=== PATIENT | female | born 1975 | race Caucasian/White ===

== ENCOUNTER → 2021-12-25 14:21 | Outpatient (BNVA) | payer MEDICAID, SELFPAY | PROVIDERS: PCP Nurse Practitioner Adult Health; Visit Provider Internal Medicine | DX: M53.3 Sacrococcygeal disorders, not elsewhere classified (principal); G89.29 Other chronic pain | CPT/HCPCS: 99202 ==

== ENCOUNTER 2024-12-28 09:26 | Outpatient (AMB) | payer MEDICAID, SELFPAY ==
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
[2024-12-28 09:35] VITALS: BP 125/59; PULSE 71; RESP 16; O2SAT 100; BMI 31.5
== END 2024-12-28 10:04 | disposition home or self-care (01) ==
PROVIDERS: PCP Nurse Practitioner Adult Health; Visit Provider Internal Medicine
DX: M53.3 Sacrococcygeal disorders, not elsewhere classified (principal); G89.29 Other chronic pain
CPT/HCPCS: 99213

== ENCOUNTER → 2024-12-28 09:26 | Outpatient (BNVA) | payer MEDICAID, OTHER, SELFPAY | PROVIDERS: PCP Nurse Practitioner Adult Health; Visit Provider Internal Medicine | DX: M53.3 Sacrococcygeal disorders, not elsewhere classified (principal); G89.29 Other chronic pain | CPT/HCPCS: 99212 ==

== ENCOUNTER 2025-02-05 10:36 | Outpatient (AMB) | payer MEDICAID, SELFPAY ==
--- NOTE | 2025-02-05 10:38 | A.OFFVIS_ITS ---
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 The patient reports experiencing sciatica characterized by pins and needles sensation in the buttocks and numbness extending to the toes and calves. The symptoms are exacerbated by prolonged standing and certain movements such as bending to apple picker objects. The patient has a history of sacroiliac joint dysfunction, with previous discussions about potential interventions including injections and fusion. The patient has not found relief from physical therapy or the use of a supportive belt. The patient also reports bilateral hip pain, which has been evaluated with plans for further imaging to rule out hip joint arthritis. The patient has a history of sports-related activities and a fall during , which may have contributed to her current symptoms. Pain Description - Onset: Long-standing, exacerbated by prolonged standing and certain movements - Quality: Pins and needles sensation in buttocks, numbness in toes and calves - Location: Buttocks, extending to toes and calves - Exacerbating factors: Prolonged standing, bending to apple picker objects - Relieving factors: None mentioned Physical Exam - Musculoskeletal: Positive Hilary test, positive sacroiliac joint compression and thrust tests Results - MRI: No significant degenerative disc disease or vertebral endplate changes, no significant facet hypertrophy Pain Management - Affect: Pain impacts daily activities and mood - Analgesia: Current pain management strategies not effective - Adverse Effects: None reported - Activities of Daily Living: Pain interferes with standing and certain movements - Aberrant Drug Related Behaviors: None reported Physical Exam Vital Signs: Last Vital Signs Pulse 88 02/05/25 10:39 Resp 16 02/05/25 10:39 BP 100/68 02/05/25 10:39 Pulse Ox 98 02/05/25 10:39 Oxygen Delivery Method Room Air 02/05/25 10:39 BMI result Body Mass Index 31.2 Assessment & Plan Assessment & Plan (1) Chronic hip pain: Code(s): M25.559 - Pain in unspecified hip; G89.29 - Other chronic pain Category: Medical (2) Chronic right sacroiliac joint pain: Code(s): M53.3 - Sacrococcygeal disorders, not elsewhere classified; G89.29 - Other chronic pain Category: Medical Plan Plan Patient was informed and verbally consented to the use of an ambient scribe for clinic note documentation during this visit. 1. Sacroiliac Joint Dysfunction - Diagnostic sacroiliac joint injection planned to assess pain relief and confirm diagnosis. - Plan to conduct a thorough workup of the sacroiliac joint, including diagnostic and therapeutic injections. - Consideration of minimally invasive sacroiliac joint fusion if injections conf irm diagnosis. 2. Bilateral Hip Pain - X-ray of bilateral hips and pelvis ordered to rule out hip joint arthritis. Discussion Notes I discussed with the patient the benign nature of the MRI findings and the absence of lumbar spine pathology to explain her axial low back pain. We reviewed the plan to perform diagnostic and therapeutic injections for the sacroiliac joint to assess pain relief. If the injections confirm sacroiliac joint dysfunction, we may consider a minimally invasive fusion. We also discussed obtaining x-rays of the hips to rule out arthritis as a source of pain. The patient was informed about the steps involved and the potential outcomes of each intervention. Patient Instructions - Schedule and attend the diagnostic sacroiliac joint injection. - Obtain x-rays of the hips and pelvis as ordered. - Follow up after the procedures to discuss results and next steps. Orders: Orders XR hip BI w PEL1V 02/05/25 G89.29 - Other chronic pain, M25.559 - Pain in unspecified hip Coding Level of Care Code Est Pt Level 4 (75877) Diagnoses Chronic hip pain M25.559; G89.29 Chronic right sacroiliac joint pain M53.3; G89.29
[2025-02-05 10:39] VITALS: BP 100/68; PULSE 88; RESP 16; O2SAT 98; BMI 31.2
--- OUTSIDE RECORDS SUMMARY | 2025-02-05 11:15 | XMS_ITS | Encounter Summary ---
Author Organization [facility] Address [address] [place] [address] Phone Care Team Providers Care Cane Burner Name Role Phone Ravindra Dockery MD Unavailable [phone] Linden Clifford MD Unavailable Ana Peace MD Unavailable [phone] Fitz Espitia MD Unavailable [phone] Zana Dias WARDROBE IMAGE CONSULTANT Unavailable [phone] Brian Nielson MD Unavailable Rommel Mcnamara CNP Unavailable Rommel Mcnamara CNP Primary Care Provider Santi Martines MD Unavailable [phone] Ravindra Dockery MD Unavailable [phone] Encounter Details Date Type Department Care Team (Late st Contact Info) Description 07/04/2018 Procedure Pass [address] [address] Social History Tobacco Use Types Packs/Day Years Used Date Smoking Tobacco: Former Cigarettes 1 20 1 - 02/2015 Smokeless Tobacco: Never Comments Unknown Sex and Gender Information Value Date Recorded Sex Assigned at Not on file Legal Sex Female 9:27 PM EDT Gender Identity Not on file Sexual Orientation Not on file documented as of this encounter Plan of Treatment Upcoming Encounters Date Type Department Care Team (Late Contact Info) Description 02/11/2025 9:00 AM EDT Procedure visit [facility] [address] [place] [address] Cody Cummings MD [address], [address] [place] [address] [email or web address] 04/30/2025 8:30 AM EST Office Visit [facility] [address] [place] [address] Rommel Mcnamara CNP [address] [place] [address] [email or web address] documented as of this encounter Visit Diagnoses Not on filedocumented in this encounter Additional Health Concerns Infection Onset Date Last Indicated Resolved Time CoV-Risk 05/07/2023 05/07/2023 05/18/2023 1:22 AM EST documented as of this encounter Care Teams Cane Burner Relationship Specialty Start Date End Date Rommel Mcnamara CNP [address] [place] [address] PCP - General 05/24/17 Ravindra Dockery MD [address] [place] [address], [address] [place] [address] Historical LMR Provider 03/05/17 9 Linden Clifford MD [address] [place] [address] Historical LMR Provider 03/05/1703/20 Ana Peace MD [address], 2nd [place] [address] Historical LMR Provider 03/05/1703/20 Fitz Espitia MD [address], [address] [place] [address] Historical LMR Provider 03/05/17 Zana Dais WARDROBE IMAGE CONSULTANT [address], [address] [place] [address] Historical LMR Provider 03/05/17 0 Brian Nielson MD [address] [place] [address] [email or web address] Historical LMR Provider 03/05/17 03/22/19 Rommel Mcnamara CNP [address] [place] [address] [email or web address] Historical LMR Provider 03/05/17 Santi Mratines MD [address] [place] [address] [email or web address] Insurance Assigned Provider 04/20/18 Ravindra Dockery MD [address] [place] [address] Insurance Assigned Provider 09/20/1801/26/23 documented as of this encounter Additional Source Comments The information contained in this document represents components of the legal health record. It is not the complete legal health record.[facility]
--- OUTSIDE RECORDS SUMMARY | 2025-02-05 11:15 | XMS_ITS | Encounter Summary ---
Author Organization [facility] Address [address] [place] [phone] Phone Care Team Providers Care Motor Rebuilder Name Role Phone Ravindra Dockery MD Unavailable [phone] Linden Clifford MD Unavailable Ana Peace MD Unavailable [phone] Fitz Espitia MD Unavailable [phone] Zana Dias STERILIZATION TECH Unavailable [phone] Brian Nielson MD Unavailable Rommel Mcnamara CNP Unavailable Rommel Mcnamara CNP Primary Care Provider Santi Martines MD Unavailable [phone] Ravindra Dockery MD Unavailable [phone] Encounter Details Date Type Department Care Team (Late st Contact Info) Description 09/02/2018 Procedure Pass [facility] [address] [place] [address] Social History Tobacco Use Types Packs/Day Years [...] 02/11/2025 9:00 AM EDT Procedure visit [facility] [address] [place] [address] Cdoy Cummings MD [address] [facility] [place] [address] [email or web address] 04/30/2025 8:30 AM EST Office Visit [facility] [address] [place] [address] Rommel Mcnamara CNP [address] [facility] [address] [place] [address] [email or web address] documented as of this encounter Visit Diagnoses Not on filedocumented in this encounter Additional Health Concerns Infection Onset Date Last Indicated Resolved Time CoV-Risk 05/07/2023 05/07/2023 05/18/2023 1:22 AM EST documented as of this encounter Care Teams Motor Rebuilder Relationship Specialty Start Date End Date Rommel Mcnamara CNP [address] [facility] [place] [address] PCP - General 05/24/17 Ravindra Dockery MD [address] [place] [address], [address] [place] [address] Historical LMR Provider 03/05/17 9 Linden Clifford MD [address] [place] [address] Historical LMR Provider 03/05/1703/20 Ana Peace MD [address] [facility] 2nd [place] [address] Historical LMR Provider 03/05/1703/20 Fitz Espitia MD [address] [facility] [place] [address] Historical LMR Provider 03/05/17 Zana Dias STERILIZATION TECH [address] [facility], [address]nd [place] [address] Historical LMR Provider 03/05/17 0 Brian Nielson MD [address] [facility] [address] [place] [address] [email or web address] Historical LMR Provider 03/05/17 03/22/19 Rommel Mcnamara CNP [address] [facility] [place] [address] [email or web address] Historical LMR Provider 03/05/17 Santi Martines MD [address] [facility] [place] [address] [email or web address] Insurance Assigned Provider 04/20/18 Ravindra Dockery MD [address] [facility] [place] [address] Insurance Assigned Provider 09/20/1801/26/23 documented as of this encounter Additional Source Comments The information contained in this document represents components of the legal health record. It is not the complete legal health record.[facility]
--- OUTSIDE RECORDS SUMMARY | 2025-02-05 11:15 | XMS_ITS | Clinical Summary ---
Author Organization [facility] Address [address] [facility] [facility] [address] [place] [id number] Phone Care Team Providers Care Chemical Inspector Name Role Phone Fitz Espitia MD Unavailable [phone] Rommel Mcnamara CNP Unavailable Rommel Mcnamara CNP Primary Care Provider [phone] Allergies Active Allergy Reactions Criticality Noted Date Comments Duloxetine 06/25/2018 Crawl out skin Pregabalin 06/25/2018 Quiroz Paroxetine Hcl 06/25/2018 Crawl out of skin Medications ibuprofen (ADVIL,MOTRIN) 800 MG tablet Take 1 tablet (800 mg total) by mouth every 6 (six) hours as needed for pain (specific location in comments). 84 tablet 2 Active tiZANidine (ZANAFLEX) 2 MG tablet Take 1 tablet (2 mg total) by mouth nightly at bedtime as needed. Do not use with marijuana 12 tablet 3 Active citalopram (CELEXA) 20 MG tablet Take 1 tablet (20 mg total) by mouth daily. 90 tablet 3 5 Active oxyCODONE 5 MG immediate release tabletIndicatio ns:Chronic left-sided low back pain with left-sided sciatica Take 1 tablet (5 mg total) by mouth 2 (two) times a day. 56 tablet 5 Active oxyCODONE 5 MG immediate release tabletIndicatio ns:Chronic left-sided low back pain with left-sided sciatica Take 1 tablet (5 mg total) by mouth 2 (two) times a day. 56 tablet 5 02/02/20 25 Discontinu ed(Reorder ) doxycycline monohydrate (MONODOX) 100 MG capsule Take 1 capsule (100 mg total) by mouth 2 (two) times a day for 7 days. 14 capsule 5 01/13/20 25 Active Problems Problem Noted Date Diagnosed Date Abnormal MRI, lumbar spine 04/27/2024 Assessment & Plan (04/27/2024 9:25 AM EST): Perimenopausal symptoms 03/12/2023 Assessment & Plan (06/12/2024 8:50 AM EST): Hot flashes improved with SSRI. Orders: Ambulatory referral to [facility] Assessment & Plan (04/27/2024 9:25 AM EST): She has had some improvement in irritability and hot flashes with citalopram 10 mg daily but would like to try a dose adjustment to 20 mg daily. New prescription is sent. F/up via TM in 1-2 months. Assessment & Plan (09/18/2023 8:41 AM EDT): Well managed with citalopram 10 mg daily. Continue the same. Assessment & Plan (04/23/2023 8:03 AM EST): Symptoms have been better controlled and she reports less irritability and anxiety on citalopram which she is tolerating without side effects. Offered dose adjustment to 20 mg daily but she prefers to continue the 10 mg dose. I offered my condolences on her loss. She reports good support and feels that the citalopram has also helped with coping. Refill provided. Follow up in September as scheduled. Assessment & Plan (03/12/2023 9:06 AM EDT): She will continue to track her periods. Trial citalopram 10 mg daily for irritability and vasomotor symptoms. Follow up via telehealth call in 6 weeks, sooner as needed. Common s/e reviewed. Encouraged more regular walking for stress management. I recommended that she reduce caffeine intake. Encounter for general adult medical examination with abnormal findings 03/12/2023 Assessment & Plan (04/27/2024 9:25 AM EST): Flu shot today. Eligible for Covid vaccine at the pharmacy. Warning signs of breast cancer and breast self-awareness reviewed. Mammography ordered. Pap smear 2025 per ASCCP guidelines. Referred, again, to [facility] for baseline colonoscopy. She plans to update dental and eye care. Orders: CBC; Future Basic metabolic panel; Future Assessment & Plan (03/12/2023 9:02 AM EDT): Flu and Td today. We reviewed that she is eligible for Covid vaccine. Warning signs of breast cancer and breast self-awareness reviewed. She will schedule mammography. Next screening pap smear 2025 per ASCCP guidelines. We will clarify what colon cancer screening insurance will cover; she is amenable to any option including colonoscopy. Labs today as below. She plans to update eye exam. Disorder of sacrum 09/07/2021 Chronic low back pain 06/24/2017 Assessment & Plan (01/04/2025 3:57 PM EDT): She consulted with [facility] pain management. Await documentation. We'll also try to find out from [facility] what the wait time is for screening colonoscopy as she consulted in May. Assessment & Plan (10/14/2024 3:00 PM EDT): Chronic low back pain with sacroiliitis and bilateral sciatica is more severe on the left, limiting daily activities. Current management includes oxycodone. She is ready for surgical evaluation. Update referral to Dr. Herzog at [facility] for surgical evaluation as this previously . We updated her opioid contract today and obtained UDS. Continue oxycodone as prescribed. Orders: Ambulatory referral to External Neurosurgery Toxicology screen, urine; Future Assessment & Plan (04/27/2024 9:25 AM EST): Chronic bilateral low back pain and now with abnormal findings on MRI. There was conversation about SI joint fusion previously. She has an open referral to Dr. Pennings but has not been contacted for an appointment and had not received the report from the recent MRI. We will fax that report and give her the number to schedule her consult. For now, continue oxycodone 5 mg BID. She is up to date with UDS and does not have an aberrant behavior. She is on contract here. We reviewed that she will need to stop smoking marijuana before any surgical procedures and the importance of this for wound healing. She is frustrated but agrees to continue to work on reducing. Continue to abstain from nicotine. Assessment & Plan (09/18/2023 8:42 AM EDT): Worsening with new right sided SI joint and hip discomfort over the past month in the setting of chronic L SI joint pain with L-sided sciatica. Pati and I discussed the effect of her block in the past and discussed that pain is unlikely to improve without intervention. She remains on chronic opioids and the goal is to be able to wean her off these. She is amenable to consulting again with Dr. Espitia to start and referral is placed. Update UDS today. Last dose of oxycodone at 5 AM today. Assessment & Plan (03/12/2023 9:05 AM EDT): Referred back to [facility] pain management to discuss treatment options. She is aware of the need to be off inhaled THC for 6 weeks prior to procedures and I encouraged her to start experimenting with reducing her intake and switching to edibles. CSRP updated. UDS obtained today. Follow up q6 months, sooner as needed. Continue oxycodone 5 mg twice daily. Former smoker 06/24/2017 Marijuana user 06/24/2017 Assessment & Plan (06/12/2024 8:50 AM EST): Assessment & Plan (04/27/2024 9:25 AM EST): Menstrual migraine without s tatus migrainosus, not intractable 06/24/2017 Assessment & Plan (06/12/2024 8:50 AM EST): She has stable migraine pattern. She notes what sound like tension type headaches. Based on her description I do not think that she needs vascular imaging urgently. I asked her to continue to reduce inhaled marijuana, to increase water intake, ensure good sleep, and put effort into stress management. To ER with worst headache of her life. Schedule o/v if headache patterns change so we can consider neurology referral or imaging. She agrees. Abiolajose 06/24/2017 Other chronic pain 06/24/2017 Assessment & Plan (06/12/2024 10:20 AM EST): Oxycodone refilled today. She is on contract. I reminded her to call Dr. Herzog' office. She agrees. Sacroiliitis, not elsewhere classified 8 Assessment & Plan (10/14/2024 3:00 PM EDT): Orders: Ambulatory referral to External Neurosurgery Toxicology screen, urine; Future Encounter for therapeutic drug monitoring 2017 Assessment & Plan (10/14/2024 3:00 PM EDT): Orders: Ambulatory referral to External Neurosurgery Toxicology screen, urine; Future Resolved Problems Problem Noted Date Diagnosed Date Resolved Date Acute cough 05/07/2023 04/27/2024 Assessment & Plan (05/07/2023 9:29 AM EST): Rapid flu is negative. Covid swab is sent as she has not tested at home and has new onset cough and felt warm last night. O2 saturation is normal and lung sounds are clear. Recommend that she push fluids, use tea with lemon/honey for cough, limit dairy, and rest. Masking encouraged until test results are available. Suspect viral etiology. No focal symptoms to suggest bacterial infection. She did feel worse last night and if Covid swab is negative and she continues to be feverish I would consider treatment for ABRS given mild sinus tenderness on exam. Dysuria 10/29/2022 03/12/2023 Assessment & Plan (10/29/2022 3:51 PM EDT): Urine dip with 1+ blood and leukocytes. Specific gravity >/= 1.030. Increase water intake. Urine sent to the lab for further analysis. Call with increasing pain, fever or chills otherwise f/up based on results. Void post coitus. Routine screening for STI (s exually transmitted infection) 10/29/2022 03/12/2023 Assessment & Plan (10/29/2022 3:52 PM EDT): STI testing today. She understands that it can take up to 3 months for hepatitis and HIV testing to become positive. Call with flu-like illness. Consider repeating in a few months. Encouraged condom use and STI testing for her partner. She is in agreement. Elevated hemoglobin 06/24/2017 01/19/20 21 Encounters Date Type Department Care Team Description 02/01/[address] [place] [address] Betsy Magallanes LPN Medication Refill (CSRP) 01/22/2025 8:20 AM EDT Office Visit [facility] [address] [place] [address] [place] [address] Cody Cummings MD Perimenopausal symptoms (Primary Dx); High risk HPV infection 01/19/[address] [place] [address] Rommel Mcnamara CNP Labs 01/05/2025 10:29 AM EDT - 01/05/2025 11:59 PM EDT Hospital Encounter [facility] [address] [place] [address] [place] [address] Rommel Mcnamara CNP Discharge Disposition: Home or Self Care 01/05/[address] [place] [address] Opal Graham, RN Results 01/04/2025 3:30 PM EDT Office Visit [address] [place] [address] Rommel Mcnamara CNP PCB (post coital bleeding) (Primary Dx); Chronic left-sided low back pain with left-sided sciatica 01/04/[address] [place] [address] Rommel Mcnamara CNP Colonoscopy 01/04/[address] [place] [address] Betsy Magallanes LPN Medication Refill (CSRP oxycodone) 12/30/2024 Nurse Triage [address] [place] [address] Rommel Mcnamara CNP Triage (Yellow+vaginal bleeding) 12/25/[address] [place] [address] Betsy Magallanes LPN Referral Request ([facility]) 12/08/[address] [place] [address] Betsy Magallanes LPN Medication Refill (CSRP oxycodone) 11/23/[address] [place] [address] Roseanne Hedrick MA Medication Refill 11/21/2024 Refill [facility] [address] [place] [address] Subha Buchanan PA-C Medication Refill (After-hours on-call) 11/13/[address] [place] [address] Rommel Mcnamara CNP Medication Refill (Oxycodone 5 mg) 11/13/[address] [place] [address] Yakov Orellana MA Medication Refill (Pt LVM for med refill) from Last 3 Months Immunizations Immunization Administration Dates Next Due COVID-19 (Pre-03/11) Pfizer Vaccine, mRNA, PF 07/23/2020,07/02/2020 INFLUENZA, SPLIT VIRUS, TRIVALENT PF 04/27/2024 Influenza Quadrivalent Prese rvative Free IM 03/12/2023,07/10/2022,05/15/2021,04/06,03/08/2017 Influenza Quadrivalent w/ Pr eservative IM 03/09/2015,03/10/2014 Influenza Recombinant Tami valent Preservative Free IM 03/23/2019,05/05/2018 Influenza trivalent preserva tive free intradermal 02/10/2013 Pneumococcal polysaccharide PPSV23 01/24/2010 Td (adult),2 Lf Tetanus Toxo id, PF, Adsorbed 03/12/2023 Tdap 10/15/2012 Family History Medical History Relation Comments Other Brother 1 Recovering addic t. Smoker Kidney failure Brother 2 No Known Problems Daughter COPD Father Former smoker Lung cancer Maternal Grandfather Anxiety disorder Mother COPD Mother Former smoker Hypertension Mother Stroke Paternal Grandmother Drug abuse Sister Step-sister: d of infection Stroke Son 1 Dissection and c lot Other Son 2 Not biological c hild - step son Breast cancer Neg Hx Colon cancer Neg Hx Diabetes Neg Hx Prostate cancer Neg Hx Relation Status Comments Brother 1 Alive Brother 2 (Age 5) Daughter Alive Father Alive Maternal Grandfather Maternal Grandmother Mother Alive Paternal Grandfather Paternal Grandmother Sister (Age 56) Son 1 Alive Son 2 Alive Social History Tobacco Use Types Packs/Day Years Used Date Smoking Tobacco: Former Cigarettes 1 20 1 - 02/2015 Smokeless Tobacco: Never Tobacco Cessation:Counseling Given: Not Answered Alcohol Use Standard Drinks/Week Comments Not Currently 0 (1 standard drink = 0.6 oz pure alcohol) Extremely rare, ~1x/year. (2023) Child or Family Care Answer Date Record ed Do you have problems with on e of the following making it difficult for you to work, study, or receive health care? No 04/27/2024 Education Answer Date Recorded Are you interested in help w ith more adult education (for example, completing high school, GED, job training, learning the [place]e language, technical skills, or developing parenting skills)? No 04/27/2024 Are you concerned about learning? Not on file 04/27/2024 No 04/27/2024 Yes 04/27/2024 Food Answer Date Recorded Within the past 6 months we worried whether our food would run out before we got money to buy more. Never True 04/27/2024 Within the past 6 months the food we bought just didn't last and we didn't have enough money to get more. Never True Residential Stability Answer Date Recor ded What is your housing situation today? I have romero viveros 04/27/2024 How many times have you move d in the past 12 months? Zero (I did not move) 04/27/2024 Paying for Meds Answer Date Recorded Do you have trouble paying for medicines? No 04/27/2024 Paying Utility Bills Answer Date Record ed Do you have trouble paying your heating or elect ricity bill? No 04/27/2024 Transportation Answer Date Recorded Has the lack of transportati on kept you from medical appointments or from getting medications? No 04/27/2024 Unemployment Answer Date Recorded Are you currently unemployed or working on a part-time or temporary basis, and looking for work? No 05/15/2021 Digital Access Answer Date Recorded Yes 04/27/2024 Yes 04/27/2024 Do you have reliable internet access at home? No 04/27/2024 Do you have a device (e.g., phone, tablet, computer) with a working camera? Yes 04/27/2024 SNAP & WIC Answer Date Recorded Do you receive benefits from SNAP (the Supplemental Nutrition Assistance Program) or the Food Stamp Program? No 04/27/2024 SNAP is a free program that can help you and your family get access to healthy foods, nutrition classes, utility discounts, and more. Would you be interested in learning more? No 04/27/2024 Can we help you enroll in SNAP? Not on file 04/27/2024 Benefits received from WIC? Not on file 01/2024 WIC is a free program, interested in learning mo re? Not on file 04/27/2024 Can we help you enroll in WIC? Not on file 1 06/28/2023 Intimate Partner Violence Answer Date R ecorded Denied Basic Needs Not on file 04/27/2024 In the past 12 months have y ou been in a relationship with a person who hurts, threatens, or tries to control you? No 04/27/2024 Worried food would run out Not on file 04/27 In the past 12 months have y ou been in a relationship with a person who hurts, threatens, or tries to control you? 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 Not on file Not on file Last Filed Vital Signs Vital Sign Reading Time Taken Comments Blood Pressure 100/60 01/22/2025 8:20 AM EDT Pulse 55 01/04/2025 3:02 PM EDT Temperature 36.4 C (97.5 F) 01/04/2025 3:02 PM EDT Respiratory Rate 17 09/02/2018 11:23 AM EDT Oxygen Saturation 99% 01/04/2025 3:02 PM EDT Inhaled Oxygen Concentration - - Weight 81.3 kg (179 lb 3.2 oz) 01/22/2025 8:20 A M EDT Height 159.4 cm (5' 2.76 ) 01/22/2025 8:20 AM ED T Body Mass Index 31.99 01/22/2025 8:20 AM EDT Plan of Treatment Upcoming Encounters Date Type Department Care Team (Late st Contact Info) Description 02/11/2025 9:00 AM EDT Procedure visit [facility] [address] [place] [address] [place] [address] Cody Cummings MD [address] [place] [address], [address] [place] [address] [email or web address] 04/30/2025 8:30 AM EST Office Visit [facility] [place] [facility] [address] [place] [address] [place] [address] Rommel Mcnamara CNP [address] [place] [address], [address] [place] [address] [email or web address] Health Maintenance Due Date Last Done Comments COLOGUARD 2021 COLONOSCOPY 2021 COLORECTAL CANCER SCREENING 2021 FIT TEST 2021 FOBT 2021 SIGMOIDOSCOPY 2021 VIRTUAL COLONOSCOPY 2021 INFLUENZA VACCINE (#1) 2024 , 03/12/2023, 07/10/2022, Additional history exists COVID-19 VACCINE ( season) 2025 05/16/2021, 07/23/2020, 07/02/2020 DEPRESSION SCREENING 04/27/2025 04/27/2024 LIPID PANEL 08/06/2025 08/06/2020, 07/19, 11/17/2014 SCREENING FOR DIABETES 03/12/2026 03/12/2023, 2022 MAMMOGRAM 10/20/2026 10/20/2024, 03/20, 06/30/2021 PAP SMEAR 01/04/2030 01/04/2025, 07/18, 06/17/2015 SMOKING STATUS SCREENING (Every 5 Years) 01/22/2030 01/22/2025 Adult Td,Tdap Booster 03/12/2033 03/12/2023, 013 PNEUMOCOCCAL VACCINES (0-49 years) Aged Out 01/24/2010 No longer eligible based on patient's age to complete this topic HEPATITIS C SCREENING Completed 01/05/2025 , 10/29/2022, 10/29/2022, Additional history exists HIV ONE-TIME SCREENING (18-65 YEARS) Completed 01/05/2025 HEPATITIS A VACCINES Aged Out No long er eligible based on patient's age to complete this topic HIB VACCINES Aged Out No longer eligi ble based on patient's age to complete this topic MENINGOCOCCAL VACCINES (ACWY) Aged Out No longer eligible based on patient's age to complete this topic MENINGOCOCCAL VACCINES (B) Aged Out N o longer eligible based on patient's age to complete this topic Medical Devices Not on file Procedures Procedure Name Priority Date/Time Associated Diagnosis Comments HEPATITIS B SURFACE ANTIBODY Routine 01/05/2025 10:58 AM EDT Need for hepatitis B screening test SYPHILIS ANTIBODY SCREEN ASSAY Routine 01/05/2025 10:58 AM EDT Chlamydia HEPATITIS C ANTIBODY, QUALITATIVE Routine 01/05/2025 10:58 AM EDT Chlamydia HIV-1/2 ANTIGEN/ANTIBODY Routine 01/05/2025 10:58 AM EDT Chlamydia CHLAMYDIA TRACHOMATIS AND NEISSERIA GONORRHOEAE NUCLEIC ACID DETECTION Routine 01/04/2025 3:56 PM EDT PCB (post coital bleeding) PAP TEST Routine 01/04/2025 12:00 AM EDT BI MAMMOGRAM SCREENING WITH TOMOSYNTHESIS WITH CAD (BILATERAL) Routine 10/20/2024 2:21 PM EDT Screening mammogram for breast cancer LIPID PANEL Routine 08/06/2020 8:43 AM EDT Routine general medical examination at a health care facility from Last 3 Months or Most Recently Relevant to Health Maintenance Results * HIV-1/2 antigen/antibody (01/05/2025 10:58 AM EDT) HIV-1/2 Antigen/Antibo dy NON-REACTI VE NON-REACTI VE [facility] Blood 01/05/2025 10:5 8 AM EDT 01/05/2025 11:03 AM EDT Rommel Buku Sisa [employer] LAB BLOOD ORDERABLES Shellie l Result [address] [address] * Hepatitis C antibody, qualitative (01/05/2025 10:58 AM EDT) HCV NON-REACTIV E NON-REACTI VE [facility] Blood 01/05/2025 10:5 8 AM EDT 01/05/2025 11:03 AM EDT [employer] LAB BLOOD ORDERABLES Shellie l Result [address] [address] * Syphilis antibody screen (01/05/2025 10:58 AM EDT) RPR NON-REACTIV E NON-REACTI VE [facility] Blood 01/05/2025 10:5 8 AM EDT 01/05/2025 11:03 AM EDT Rommel Mcnamara [facility] LAB BLOOD ORDERABLES Shellie l Result Performing Organization Address [facility]/ZIP Co de Phone Number [address] [address] * Hepatitis B surface antibody (01/05/2025 10:58 AM EDT) HBV SURFACE ANTIBODY Negative [facility] Comment: Unvaccinated: Negative Vaccinated: Positive Blood 01/05/2025 10:5 8 AM EDT 01/05/2025 11:03 AM EDT Rommel Mcnmaara [facility] LAB BLOOD ORDERABLES Shellie l Result Performing Organization Address [facility] Co de Phone Number [address] [address] * (ABNORMAL) Chlamydia Trachomatis and Neisseria Gonorrhoeae Nucleic Acid Detection (01/04/2025 3:56 PM EDT) CHLAMYDIA TRACHOMATIS Detected(A) Not Detected [facility] NEISERIA GONORRHOEAE Not Detected Not Detected [facility] SPECIMEN TYPE SWAB [facility] Other (Endocervical) 01/04/2025 3:56 PM EDT 01/04/2025 5:54 PM EDT Rommel Mcnamara [employer] NON CULTURE MICROBIOLOGY Final Result Performing Organization Address City/[facility]/ZIP Co de Phone Number [address] [address] * Pap Test (01/04/2025 12:00 AM EDT) 01/04/2025 01/05/2025 9:1 6 AM EDT Narrative SEE NARRATIVE - 01/06/2025 4:00 PM EDT [address] [address] Mobile Ui/Ux Designer: Ambrocio Alcala MD REAL ESTATE ECONOMIST Cytology Report FINAL DIAGNOSIS A. PAP SMEAR (THIN PREP) CE: SPECIMEN ADEQUACY: Unsatisfactory for evaluation. Specimen processed and examined, but unsatisfactory due to insufficient squamous component. INTERPRETATION: UNSATISFACTORY FOR EVALUATION. A diagnosis cannot be rendered on an unsatisfactory specimen. Coccobacilli consistent with shift in kieran Electronically Signed Out By: MD Dafne Louis CT(ASCP) By his/her signature above, the pathologist listed as making the Final Diagnosis certifies that he/she has personally reviewed this case and confirmed or corrected the diagnosis. The Pap test is a screening test primarily for squamous cancers and precursors and has associated false-negative and false-positive results. New technologies such as liquid-based preparations may decrease but will not eliminate all false-negative results. Regular sampling and follow-up of unexplained clinical signs and symptoms are recommended to minimize false negative results. PROCEDURES/ADDENDA HPV Testing (Requested) Ordered Date: 01/05/2025 A. PAP SMEAR (THIN PREP) CE: High-risk HPV Panel w/ extended genotyping POS HPV 16-NEG HPV 18-POS HPV 45-NEG HPV 33/58-NEG HPV 31-NEG HPV 56/59/66-NEG HPV 51-NEG HPV 52-NEG HPV 35/39/68-NEG Performed by real-time polymerase chain reaction (PCR) at [facility], [address] [place] [address] using the FDA-approved BD Onclarity HPV Assay with extended genotyping. Uses of the assay in scenarios other than those approved by the FDA should be considered off-label use. The accuracy and precision of this test for all other off-label specimen sources has been verified in the Cytopathology Laboratory of the [facility] and has not been cleared or approved by the U.S. Food and Drug Administration. Clinical correlation is advised. The assay assesses the E6/E7 DNA target and utilizes human beta globin as an internal control. Cytology and HPV testing are screening assays and should not be used as the sole means of detecting cancer. False-positives and false-negatives can occur. CLINICAL HISTORY Date of Last Menstrual Period: Menstrual History: Jesusita-Menopausal Bleeding, Post Coital Infection History: HPV: 2024 Treatment History: LEEP: 20 YEARS AGO Other Clinical Conditions: Diagnostic Pap SPECIMEN SOURCE A: PAP SMEAR (THIN PREP) CE Patient Name: PATI EDWARDS : 1975 (Age: 49) Sex: F Institution: [facility] Location: [facility] Date of Collection: 01/04/2025 Date of Reported: 01/06/2025 16:00 Results to: Rommel Mcnamara MSN Rommel Mcnamara [facility] CYTOLOGY ORDERABLES Final Result SEE NARRATIVE * BI MAMMOGRAM SCREENING WITH TOMOSYNTHESIS WITH CAD (BILATERAL) (10/20/2024 2:21 PM EDT) Anatomical Region Laterality Modality Breast Left, Breast Right, Breast Bilateral Bila teral Mammography 10/22/2024 8:15 AM EDT Impressions 10/22/2024 8:21 AM EDT No mammographic evidence of malignancy in either breast. Annual screening mammography is recommended. BI-RADS 1 NEGATIVE The patient will be notified of the results and recommendations. Narrative 10/22/2024 8:21 AM EDT BI MAMMOGRAM SCREENING WITH TOMOSYNTHESIS WITH CAD (BILATERAL) Additional patient information: Screening. COMPARISON: Comparison is made with relevant prior imaging. Breast composition: The breasts are almost entirely fatty. FINDINGS: No abnormal masses, suspicious calcifications, or other significant findings are identified mammographically in either breast. Procedure Note Elder Cormier MD - 10/22/2024 BI MAMMOGRAM SCREENING WITH TOMOSYNTHESIS WITH CAD (BILATERAL) Additional patient information: Screening. COMPARISON: Comparison is made with relevant prior imaging. Breast composition: The breasts are almost entirely fatty. FINDINGS: No abnormal masses, suspicious calcifications, or other significantfindings are identified mammographically in either breast. IMPRESSION: No mammographic evidence of malignancy in either breast. Annual screening mammography is recommended. BI-RADS 1 NEGATIVE The patient will be notified of the results and recommendations. Rommel Mcnamara CNP IMG MG EXAMS Final Res ult * (ABNORMAL) Lipid panel (08/06/2020 8:43 AM EDT) HDL 62 mg/dL [facility] Comment: Interpretation <40 mg/dL: Low HDL cholesterol (major risk factor for CHD) Greater than or equal to 60 mg/dL: High HDL cholesterol ( negative risk factor for CHD) HDL - cholesterol is affected by a number of factors, e.g. smoking, excerise, hormones, sex and age. CHOLESTEROL 163 0 - 240 mg/dL [facility] TRIGLYCERIDES 64 30 - 160 mg/dL [facility] LDL 88 50 - 129 mg/dL [facility] Comment: LDL levels in terms of risk for coronary heart disease: <100 mg/dL: Optimal 100-129 mg/dL: Near or above optimal 130-159 mg/dL: Borderline high 160-189 mg/dL: High >190 mg/dL: Very High CARDIAC RISK RATIO 2.6(L) 3.3 - 4.4 [facility] Blood 08/06/2020 8:43 AM EDT 08/06/2020 8:47 AM EDT Rommel Mcnamara CNP LAB BLOOD ORDERABLES Shellie young Result [facility] [address] [place] [address] from Last 3 Months or Most Recently Relevant to Health Maintenance Insurance [facility] NON MGB PCP [facility] NON MGB PCP [facility] NON MGB PCP [facility] NON MGB PCP [facility] NON MGB PCP Care Teams Chemical Inspector Relationship Specialty Start Date End Date Rommel Mcnamara CNP [address] [facility], [address] [place] [address] PCP - General 05/24/17 Fitz Espitia MD [address] [facility], 2nd [place] [address] Historical LMR Provider 03/05/17 Rommel Mcnamara CNP [address] [facility] [place] [address] Historical LMR Provider 03/05/17 Additional Source Comments The information contained in this document represents components of the legal health record. It is not the complete legal health record.[facility]
--- OUTSIDE RECORDS SUMMARY | 2025-02-05 11:15 | XMS_ITS | Encounter Summary ---
Author Organization [facility] Address [address] [facility] [place] [address] Phone Care Team Providers Care Prevention Specialist Name Role Phone Fitz Espitia MD Unavailable [phone] Rommel Mcnamara CNP Unavailable [phone] Rommel Mcnamara CNP Primary Care Provider [phone] Encounter Details Date Type Department Care Team (Late st Contact Info) Description 02/04/2024 Procedure Pass [facility], [facility] [address] [place] [address] Social History Tobacco Use Types Packs/Day Years Used Date Smoking Tobacco: Former Cigarettes 1 20 1 - 02/2015 Smokeless Tobacco: Never Alcohol Use Standard Drinks/Week Comments Not Currently 0 (1 standard drink = 0.6 oz pur e alcohol) Extremely rare, ~1x/year. Child or Family Care Answer Date Record ed Do you have problems with on e of the following making it difficult for you to work, study, or receive health care? No 03/12/2023 Education Answer Date Recorded Are you interested in help w ith more adult education (for example, completing high school, GED, job training, learning the Fijian language, technical skills, or developing parenting skills)? No 03/12/2023 Are you concerned about learning? Not on file 03/12/2023 No 03/12/2023 Yes 03/12/2023 Food Answer Date Recorded Within the past 6 months we worried whether our food would run out before we got money to buy more. Never True 023 Within the past 6 months the food we bought just didn't last and we didn't have enough money to get more. Sometimes True 02/18 Residential Stability Answer Date Recor ded What is your housing situation today? I have romero viveros 03/12/2023 How many times have you move d in the past 12 months? Zero (I did not move) 03/12/2023 Paying for Meds Answer Date Recorded Do you have trouble paying for medicines? No 03/12/2023 Paying Utility Bills Answer Date Record ed Do you have trouble paying your heating or elect ricity bill? No 03/12/2023 Transportation Answer Date Recorded Has the lack of transportati on kept you from medical appointments or from getting medications? No 03/12/2023 Unemployment Answer Date Recorded Are you currently unemployed or working on a part-time or temporary basis, and looking for work? No 05/15/2021 Digital Access Answer Date Recorded No 03/12/2023 Yes 03/12/2023 Do you have reliable internet access at home? Ye s 03/12/2023 Do you have a device (e.g., phone, tablet, computer) with a working camera? Yes 03/12/2023 SNAP & WIC Answer Date Recorded Do you receive benefits from SNAP (the Supplemental Nutrition Assistance Program) or the Food Stamp Program? Yes 03/12/2023 SNAP is a free program, interested in learning m ore? Not on file 03/12/2023 Can we help you enroll in SNAP? Not on file 03/12/2023 Benefits received from WIC? Not on file 02/18 WIC is a free program, interested in learning mo re? Not on file 03/12/2023 Can we help you enroll in WIC? 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 Not on file Not on file documented as of this encounter Plan of Treatment Upcoming Encounters Date Type Department Care Team (Late st Contact Info) Description 02/11/2025 9:00 AM EDT Procedure visit [facility] [address] [place] [address] [place] [address] Cody Cummings MD [address] [facility], [address] [place] [address] [email or web address] 04/30/2025 8:30 AM EST Office Visit [address] [address] Rommel Mcnamara CNP [address] [facility], [address] [place] [address] [email or web address] documented as of this encounter Visit Diagnoses Not on filedocumented in this encounter Additional Health Concerns Assessment Noted Time PHQ-2 Depression Total Score: 0 03/12/20 23 7:58 AM EDT documented as of this encounter Care Teams Prevention Specialist Relationship Specialty Start Date End Date Rommel Mcnamara CNP [address] [place] [address], [address] [place] [address] PCP - General 05/24/17 Fitz Espitia MD [address] [place] [address], [address] [place] [address] Historical LMR Provider 03/05/17 Rommel Mcnamara CNP [address] [place] [address], [address] [place] [address] Historical LMR Provider 03/05/17 documented as of this encounter Additional Source Comments The information contained in this document represents components of the legal health record. It is not the complete legal health record.[facility]
--- OUTSIDE RECORDS SUMMARY | 2025-02-05 11:15 | XMS_ITS | Encounter Summary ---
Author Organization [facility] Address [address] [facility] [address] [place] [address] Phone Care Team Providers Care Shoe Packer Name Role Phone Ravindra Dockery MD Unavailable [phone] Linden Clifford MD Unavailable Ana Peace MD Unavailable [phone] Fitz Espitia MD Unavailable [phone] Zana Dias MOPPER Unavailable [phone] Brian Nielson MD Unavailable Rommel Mcnamara CNP Unavailable Rommel Mcnamara CNP Primary Care Provider Santi Martines MD Unavailable [phone] Ravindra Dockery MD Unavailable [phone] Encounter Details Date Type Department Care Team (Late st Contact Info) Description 09/02/2018 Procedure Pass [facility] [address] [place] [address] Social History Tobacco Use Types Packs/Day Years [...] 02/11/2025 9:00 AM EDT Procedure visit [facility] [address] [place] [address] Cody Cummings MD [address] [facility], [address] [place] [address] [email or web address] 04/30/2025 8:30 AM EST Office Visit [facility] [address] [place] [address] Rommel Mcnamara CNP [address] [facility] [place] [address] [email or web address] documented as of this encounter Visit Diagnoses Not on filedocumented in this encounter Additional Health Concerns Infection Onset Date Last Indicated Resolved Time CoV-Risk 05/07/2023 05/07/2023 05/18/2023 1:22 AM EST documented as of this encounter Care Teams Shoe Packer Relationship Specialty Start Date End Date Rommel Mcnamara CNP [address] [facility], [address] [place] [address] PCP - General 05/24/17 Ravindra Dockery MD [address] [place] [address], [address] [place] [address] Historical LMR Provider 03/05/17 9 Linden Clifford MD [address] [place] [address] Historical LMR Provider 03/05/1703/20 Ana Peace MD [address] [facility], 2nd [place] [address] Historical LMR Provider 03/05/1703/20 Fitz Espitia MD [address] [facility], [address]nd [place] [address] Historical LMR Provider 03/05/17 Zana Dias MOPPER [address] [facility], 2nd [place] [address] Historical LMR Provider 03/05/17 0 Brian Nielson MD [address] [facility] Floor 1 [place] [address] [email or web address] Historical LMR Provider 03/05/17 03/22/19 Rommel Mcnamara CNP [address] [facility] [place] [address] [email or web address] Historical LMR Provider 03/05/17 Santi Martines MD [address] [facility] [place] [address] [email or web address] Insurance Assigned Provider 04/20/18 Ravindra Dockery MD [address] [facility] [place] [address] Insurance Assigned Provider 09/20/1801/26/23 documented as of this encounter Additional Source Comments The information contained in this document represents components of the legal health record. It is not the complete legal health record.[facility]
--- OUTSIDE RECORDS SUMMARY | 2025-02-05 11:15 | XMS_ITS | Encounter Summary ---
Author Organization [facility] Address [address] [place] [address] Phone Care Team Providers Care Bench Worker Name Role Phone Fitz Espitia MD Unavailable [phone] Rommel Mcnamara CNP Unavailable [phone] Rommel Mcnamara CNP Primary Care Provider [phone] Ravindra Dockery MD Unavailable [phone] Encounter Details Date Type Department Care Team (Late st Contact Info) Description 05/15/2021 Procedure Pass [facility], [facility] [address] [place] [address] Social History Tobacco Use Types Packs/Day Years [...] work, study, or receive health care? No 05/15/2021 Education Answer Date Recorded Are you interested in help w ith more adult education (for example, completing high school, GED, job training, learning the [place] Islander language, technical skills, or developing parenting skills)? No 05/15/2021 Food Answer Date Recorded Within the past 6 months we worried whether our food would run out before we got money to buy more. Never True 05/15/2021 Within the past 6 months the food we bought just didn't last and we didn't have enough money to get more. Never True Residential Stability Answer Date Recor ded What is your housing situation today? I have romero viveros 05/15/2021 How many times have you move d in the past 12 months? Zero (I did not move) 05/15/2021 Paying for Meds Answer Date Recorded Do you have trouble paying for medicines? No 05/15/2021 Paying Utility Bills Answer Date Record ed Do you have trouble paying your heating or elect ricity bill? No 05/15/2021 Transportation Answer Date Recorded Has the lack of transportati on kept you from medical appointments or from getting medications? No 05/15/2021 Unemployment Answer Date Recorded Are you currently unemployed or working on a part-time or temporary basis, and looking for work? 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 Not on file Not on file documented as of this encounter Plan of Treatment Upcoming Encounters Date Type Department Care Team (Late st Contact Info) Description 02/11/2025 9:00 AM EDT Procedure visit [facility] [address] [place] [address] [place] [address] Cody Cummings MD [address] [place] [address], [address] [place] [address] [email or web address] 04/30/2025 8:30 AM EST Office Visit [facility] [address] [place] [address] [place] [address] Rommel Mcnamara CNP [address] [place] [address], [address] [place] [address] [email or web address] documented as of this encounter Visit Diagnoses Not on filedocumented in this encounter Additional Health Concerns Infection Onset Date Last Indicated Resolved Time CoV-Risk 05/07/2023 05/07/2023 05/18/2023 1:22 AM EST Assessment Noted Time PHQ-2 Depression Total Score: 0 05/15/20 21 2:47 PM EST documented as of this encounter Care Teams Bench Worker Relationship Specialty Start Date End Date Rommel Mcnamara CNP [address] [place] [address], [address] [place] [address] PCP - General 05/24/17 Fitz Espitia MD [address] [place] [address], [address] [place] [address] Historical LMR Provider 03/05/17 Rommel Mcnamara CNP [address] [place] [address], [address] [place] [address] Historical LMR Provider 03/05/17 Ravindra Dockery MD [address] [place] [address], [address] [place] [address] Insurance Assigned Provider 09/20/1801/26/23 documented as of this encounter Additional Source Comments The information contained in this document represents components of the legal health record. It is not the complete legal health record.[facility]
--- OUTSIDE RECORDS SUMMARY | 2025-02-05 11:16 | XMS_ITS | Encounter Summary ---
Author Organization [facility] Address [address] [place] [address] Phone Care Team Providers Care Circus Performer Name Role Phone Fitz Espitia MD Unavailable [phone] Rommel Mcnamara CNP Unavailable [phone] Rommel Mcnamara CNP Primary Care Provider [phone] Encounter Details Date Type Department Care Team (Late st Contact Info) Description 04/27/2024 Procedure Pass [facility], [facility] [address] [place] [address] Social History Tobacco Use Types Packs/Day Years [...] high school, GED, job training, learning the Ghanaian language, technical skills, or developing parenting skills)? 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 Not on file Not on file documented as of this encounter Plan of Treatment Upcoming Encounters Date Type Department Care Team (Late st Contact Info) Description 02/11/2025 9:00 AM EDT Procedure visit [facility] [address] [place] [address] Cody Cummings MD [address] [facility], [address] [place] [address] [email or web address] 04/30/2025 8:30 AM EST Office Visit [facility] [address] [place] [address] Rommel Mcnamara CNP [address] [place] [address], [address] [place] [address] [email or web address] documented as of this encounter Visit Diagnoses Not on filedocumented in this encounter Additional Health Concerns Assessment Noted Time PHQ-2 Depression Total Score: 1 04/27/20 24 8:38 AM EST documented as of this encounter Care Teams Circus Performer Relationship Specialty Start Date End Date Rommel Mcnamara CNP [address] [place] [address], [address] [place] [address] PCP - General 05/24/17 Fitz Espitia MD [address] [place] [address], 2[address] [place] [address] Historical LMR Provider 03/05/17 Rommel Mcnamara CNP [address] [place] [address], [address] [place] [address] [email or web address] Historical LMR Provider 03/05/17 documented as of this encounter Additional Source Comments The information contained in this document represents components of the legal health record. It is not the complete legal health record.[facility]
--- OUTSIDE RECORDS SUMMARY | 2025-02-05 11:16 | XMS_ITS | Encounter Summary ---
Author Organization [facility] Address [address] [facility] [address] [place] [address] Phone Care Team Providers Care Tile Burner Name Role Phone Fitz Espitia MD Unavailable [phone] Rommel Mcnamara CNP Unavailable [phone] Rommel Mcnamara CNP Primary Care Provider [phone] Reason for Visit * Reason Onset Date Comments Results 01/05/2025 Encounter Details Date Type Department Care Team (Late st Contact Info) Description 01/05/2025 Telephone [email or web address] [address] [place], [place] [phone] Opal Graham, RN [address] [place], [place] [address] [email or web address] Results Social History Tobacco Use Types Packs/Day Years [...] high school, GED, job training, learning the East [place]orese language, technical skills, or developing parenting skills)? 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 She had labs drawn this morning. She spoke with her partner. Condom use discussed. She will let us know how she feels in a few weeks, sooner if symptoms worsen. Keep DISTRIBUTOR SALES CONSULTANT appointment asscheduled. Postponing encounter for mid January. * Opal Graham RN - 01/05/2025 9:39 AM EDT Images from the original note were not included. Patient notified of lab results and instructions as per provider. Verbalizes understanding and agreement. This is terrible. I think I am going to cry. Pended syphilis, hepatitis B and C, HIV orders. Patient gave verbal consent for HIV testing. Pended doxycyline order. Message Received: Today Rommel Mcnamara CNP P [facility] Rn Please call patient. She tested positive for chlamydia. Test is negative for gonorrhea. I recommendblood tests for syphilis, hepatitis B and C, and HIV; please cue orders. She should be treated withdoxycycline 100 mg po BID x 7 days. Please review s/e and cue medication. Probiotics advised. I recommend that her partner be treated. They should not be sexually active until both have been treated and completed the full course. If symptoms persist she should be retested at 1 month, otherwise should be tested at 3 months. documented in this encounter Plan of Treatment Upcoming Encounters Date Type Department Care Team (Late st Contact Info) Description 02/11/2025 9:00 AM EDT Procedure visit [facility] [address] [place] [address] [place] [address] Cody Cummings MD [address] [facility], [address] [place] [address] [email or web address] 04/30/2025 8:30 AM EST Office Visit [facility] [address] [place] [address] [place] [address] Rommel Mcnamara CNP [address] [place] [address], [address] [place] [address] [email or web address] documented as of this encounter Results * HIV-1/2 antigen/antibody (01/05/2025 10:58 AM EDT) HIV-1/2 Antigen/Antibo dy NON-REACTI VE NON-REACTI VE [facility] Blood 01/05/2025 10:5 8 AM EDT 01/05/2025 11:03 AM EDT us Rommel Mcnamara [facility] LAB BLOOD ORDERABLES Shellie l Result Performing Organization Address City/[facility]/ZIP Co de Phone Number [facility] [address] [place] [address] * Hepatitis C antibody, qualitative (01/05/2025 10:58 AM EDT) HCV NON-REACTIV E NON-REACTI VE [facility] Blood 01/05/2025 10:5 8 AM EDT 01/05/2025 11:03 AM EDT Rommel Mcnamara [facility] LAB BLOOD ORDERABLES Shellie l Result [address] [address] * Hepatitis B surface antibody (01/05/2025 10:58 AM EDT) HBV SURFACE ANTIBODY Negative [facility] Comment: Unvaccinated: Negative Vaccinated: Positive Blood 01/05/2025 10:5 8 AM EDT 01/05/2025 11:03 AM EDT Rommel Mcnamara [facility] LAB BLOOD ORDERABLES Shellie l Result [address] [address] * Syphilis antibody screen (01/05/2025 10:58 AM EDT) RPR NON-REACTIV E NON-REACTI VE [facility] Blood 01/05/2025 10:5 8 AM EDT 01/05/2025 11:03 AM EDT Rommel Mcnamara [facility] LAB BLOOD ORDERABLES Shellie l Result Performing Organization Address City/[facility]/ZIP Co de Phone Number [address] [address] documented in this encounter Visit Diagnoses Diagnosis Need for hepatitis B screening test- Primary Chlamydia Other specified chlamydial infection, in conditions classified elsewhere and of unspecified site documented in this encounter Additional Health Concerns Assessment Noted Time PHQ-2 Depression Total Score: 1 04/27/20 24 8:38 AM EST documented as of this encounter Care Teams Tile Burner Relationship Specialty Start Date End Date Rommel Mcnamara CNP [address] [facility], [address] [place] [address] PCP - General 05/24/17 Fitz Espitia MD [address] [facility], 2nd [place] [address] Historical LMR Provider 03/05/17 Rommel Mcnamara CNP [address] [place] [address], [address] [place] [address] [email or web address] Historical LMR Provider 03/05/17 documented as of this encounter Additional Source Comments The information contained in this document represents components of the legal health record. It is not the complete legal health record.[facility]
--- OUTSIDE RECORDS SUMMARY | 2025-02-05 11:16 | XMS_ITS | Encounter Summary ---
Author Organization [facility] Address [address] [place] [phone] Phone Care Team Providers Care Evp Strategy Name Role Phone Fitz Espitia MD Unavailable [phone] Rommel Mcnamara CNP Unavailable [phone] Rommel Mcnamara CNP Primary Care Provider [phone] Encounter Details Date Type Department Care Team (Late st Contact Info) Description 03/12/2023 Procedure Pass [facility] [address] [place] [address] Social History Tobacco Use Types Packs/Day Years [...] high school, GED, job training, learning the Luxembour[place] language, technical skills, or developing parenting skills)? 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 on file Not on file documented as of this encounter Plan of Treatment Upcoming Encounters Date Type Department Care Team (Late st Contact Info) Description 02/11/2025 9:00 AM EDT Procedure visit [facility] [address] [place] [address] [place] [address] Cody Cummings MD [address] [place] [address] [email or web address] 04/30/2025 8:30 AM EST Office Visit [facility] [address] [place] [address] Rommel Mcnamara CNP [address] [place] [address] [email or web address] documented as of this encounter Visit Diagnoses Not on filedocumented in this encounter Additional Health Concerns Infection Onset Date Last Indicated Resolved Time CoV-Risk 05/07/2023 05/07/2023 05/18/2023 1:22 AM EST Assessment Noted Time PHQ-2 Depression Total Score: 0 03/12/20 23 7:58 AM EDT documented as of this encounter Care Teams Evp Strategy Relationship Specialty Start Date End Date Rommel Mcnamara CNP [address] [place] [address] PCP - General 05/24/17 Fitz Espitia MD [address] [place] [address], [address] [place] [address] Historical LMR Provider 03/05/17 Rommel Mcnamara CNP [address] [place] [address], [address] [place] [address] Historical LMR Provider 03/05/17 documented as of this encounter Additional Source Comments The information contained in this document represents components of the legal health record. It is not the complete legal health record.[facility]
--- OUTSIDE RECORDS SUMMARY | 2025-02-05 11:16 | XMS_ITS | Encounter Summary ---
Author Organization [facility] Address [address] [place] [phone] Phone Care Team Providers Care Belt Cleaner Name Role Phone Fitz Espitia MD Unavailable Rommel Mcnamara CNP Unavailable [phone] Rommel Mcnamara CNP Primary Care Provider [phone] Reason for Visit * Reason Onset Date Comments Medication Refill 02/01/2025 CSRP Encounter Details Date Type Department Care Team (Late st Contact Info) Description 02/01/2025 Refill [facility] [address] [place] [address] Betsy Maagllanes LPN [address] [place] [address] [email or web address] Medication Refill (CSRP) Social History Tobacco Use Types Packs/Day Years [...] high school, GED, job training, learning the Monegas[place] language, technical skills, or developing parenting skills)? 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 Rx Care Gap Status - Instructions for Clinical Staff (prescriber discretion applies): > Mismatch review guide > Check PDMP for all controlled medication requests. Visit Info Last visit: 01/04/2025 Rommel Mcnamara CNP Family [facility] > Requested f/u: Not specified Upcoming visit: 04/30/2025 Rommel Mcnamara CNP [facility] ACTIONS TAKEN BY Betsy Magallanes LPN - Checked PDMP/MassPAT. Opioid Rx Protocol - oxycodone HCl Controlled substance renewals are at prescriber discretion. Pain mgmt profile/toxicology (urine/saliva) may be considered annually or more frequently if indicated. In-person visit in past 2 years: Yes (Last in-person visit: 01/04/2025 (Rommel Mcnamara CNP - [facility])) Visit in past 4 months: Yes No benzodiazepine on medication list Opioid agreement on file: Yes Pain management profile/toxicology in past 12 months: Yes documented in this encounter Plan of Treatment Upcoming Encounters Date Type Department Care Team (Late st Contact Info) Description 02/11/2025 9:00 AM EDT Procedure visit [facility] [address] [place] [address] [place] [address] Cody Cummings MD [address] [place] [address] [email or web address] 04/30/2025 8:30 AM EST Office Visit [facility] [address] [place] [address] Rommel Mcnamara CNP [address] [facility] [address] [place] [address] [email or web address] documented as of this encounter Visit Diagnoses Diagnosis Chronic left-sided low back pain with left-sided sciatica documented in this encounter Additional Health Concerns Assessment Noted Time PHQ-2 Depression Total Score: 1 04/27/20 24 8:38 AM EST documented as of this encounter Care Teams Belt Cleaner Relationship Specialty Start Date End Date Rommel Mcnamara CNP [address] [place] [address], [address] [place] [address] PCP - General 05/24/17 Fitz Espitia MD [address] [place] [address], [address] [place] [address] Historical LMR Provider 03/05/17 Rommel Mcnamara CNP [address] [place] [address], [address] [place] [address] Historical LMR Provider 03/05/17 documented as of this encounter Additional Source Comments The information contained in this document represents components of the legal health record. It is not the complete legal health record.[facility]
== END 2025-02-05 11:26 | disposition home or self-care (01) ==
LOC: HO.PMC 10:36
PROVIDERS: PCP Nurse Practitioner Adult Health; Visit Provider Internal Medicine
DX: M25.559 Pain in unspecified hip (principal); G89.29 Other chronic pain; M53.3 Sacrococcygeal disorders, not elsewhere classified
CPT/HCPCS: 99214

== ENCOUNTER 2025-02-05 10:36 | Outpatient (REF) | payer MEDICAID, SELFPAY ==
--- NOTE | ~2025-02-05 | XR_ITS ---
EXAMINATION: XR BILATERAL HIPS WITH AP PELVIS CLINICAL INFORMATION: M25.559 - Pain in unspecified hip COMPARISON: None available. TECHNIQUE: AP and frog-leg views of each hip and an AP view of the pelvis. FINDINGS: Pelvis: Minimal degenerative changes are present in the SI joints with small marginal osteophytes. Bowel gas pattern is unremarkable. Left hip: Joint spaces preserved. No definite osteophytes are identified. Right hip: Joint spaces preserved. There are no osteophytes. There is faint calcific density anterior to the greater tuberosity on the frog leg view XR/XR hip BI w [id number] IMPRESSION: Mild degenerative changes in the SI joints. Right hip: Faint calcification anterior to the right greater trochanter probably represents calcific tendinitis in the distal right gluteus minimus tendon. Unremarkable left hip. Electronically signed by: James Lipscomb MD 02/05/2025 01:06 PM EDT
== END 2025-02-05 10:37 | disposition home or self-care (01) ==
LOC: HO.XRAY 10:36
PROVIDERS: PCP Nurse Practitioner Adult Health; Visit Provider Internal Medicine
DX: M25.551 Pain in right hip (principal); M25.552 Pain in left hip; G89.29 Other chronic pain; M53.3 Sacrococcygeal disorders, not elsewhere classified
CPT/HCPCS: 73521; 99212

== ENCOUNTER → 2025-02-05 11:54 | Outpatient (BNV) | payer MEDICAID, SELFPAY | PROVIDERS: PCP Nurse Practitioner Adult Health; Visit Provider Radiology Diagnostic Radiology | DX: M25.551 Pain in right hip (principal); M25.552 Pain in left hip | CPT/HCPCS: 73521 ==